=== PATIENT | female | born 1990 | race American Indian/Alaskan Native ===

== ENCOUNTER 2018-10-02 12:33 | Outpatient (CLI) | payer BC ==
[2018-10-02 12:59] VITALS: BP 132/85
== END 2018-10-02 16:31 | disposition home or self-care (01) ==
LOC: TRG 12:33
PROVIDERS: ATTEND Obstetrics & Gynecology
DX: O47.02 False labor before 37 completed weeks of gestation, second trimester (principal); Z3A.24 24 weeks gestation of pregnancy
CPT/HCPCS: 59025

== ENCOUNTER 2019-01-12 10:03 | Inpatient (IN) | payer BC ==
[2019-01-12 10:48] LABS: Hematocrit 46.3 % (30.3-42.9); Mean Corpuscular HGB Conc 35 % (30-34); Mean Corpuscular Volume 87 fl (79-97); Platelet Count 230 K/mm3 (140-440); Red Blood Count 5.34 M/mm3 (3.65-5.03); Red Cell Distribution Width 14.3 % (13.2-15.2)
[2019-01-12 10:50] LABS: Bacteria,Urine 2+ /HPF (Negative); Bilirubin,Urine NEG (Negative); Blood,Urine NEG (Negative); Color,Urine Yellow (Yellow); Mucus,Urine 1+ /HPF; Urobilinogen,Urine < 2.0 mg/dL (<2.0)
[2019-01-12 10:51] LABS: Protein,Urine >500 mg/dL (Negative)
[2019-01-12 11:13] LABS: Alanine Aminotransferase 46 units/L (7-56); Uric Acid 6.6 mg/dL (3.5-7.6)
--- NOTE | 2019-01-12 11:54 | Ultrasound Report ---
ULTRASOUND OB FOLLOW-UP ULTRASOUND OB BIOPHYSICAL PROFILE HISTORY: well-being, gestational hypertension COMPARISON: None at this facility TECHNIQUE: Routine complete OB ultrasound performed with biophysical profile. Transabdominal ultrasou nd with color Doppler imaging. FINDINGS: Gestation: Gal[place] Presentation: Cephalic Amniotic Fluid Index: 15.7 cm BIOMETRY: Biparietal diameter: 8.6 cm corresponding to34 weeks 4 days Head circumference: 29.7 cmcorresponding to32 weeks 6 days Abdominal circumference: 25.7 cmcorresponding to29 weeks 6 days Femur length: 5.9 cmcorresponding to30 weeks 4 days Estimated weight: 1630 +/- 241 grams. Estimated gestational age based on clinical history/previous ultrasound: 35 weeks 6 days with BENY 02/10 Estimated gestational age based on today's measurements: 32 weeks 0 days BIOPHYSICAL PROFILE: Movement: 2 Tone: 2 Breathin Amniotic Fluid: 2 Total: 8 out of 8 IMPRESSION 1. Single living intrauterine at approximately 32 weeks 0 days with appropriate growth and no sonographically evident anomalies. 2. Biophysical Profile 8 out of 8. Signer Name: Rafael Anguiano Jr, MD Signed: 01/12/2019 11:50 AM Workstation Name: [id number]
[2019-01-12] MEDS ORDERED: BENADRYL PO PRN (12:21)
[2019-01-12] MEDS ORDERED: AMBIEN PO PRN (12:21)
[2019-01-12] MEDS ORDERED: ZOFRAN IV PRN (12:21)
[2019-01-12] MEDS ORDERED: DEEP SEA NS PRN (12:21)
--- NOTE | 2019-01-12 12:46 | History and Physical Report ---
History of Present Illness Date of examination: 01/12/19 (Sent from office for [facility] eval) Chief complaint: Pt reprts no LEON today. Uses Tylenol if needed. History of present illness: EDC Confirmation: 02/11/2019 Gestational Age: 10 3/7 weeks Past History : 1 Past Medical History: Negative Past Medical History Past Surgical History: wisdom teeth removal 2009 Past Medical History Surgery (Non-seat cover cutter): wisdom teeth removal 2009 Abnormal PAP: negative NATALIE Exposure: negative Infertility: negative Uterine Anomaly: negative Uterine Surgery (not C/S): negative Other Gynecologic Problems: negative Family Hx: MGM-DM PGM-DM Social Hx: previous smoker quit 2010 Infection History Hx of STD: none HIV Risk Eval: low risk Hepatitis B Risk Eval: low risk Personal hx. of genital herpes: no Partner hx. of genital herpes: no Rash, Viral, or Febrile illness since last LMP? no Varicella/Chicken Pox Status: Previous Disease TB Risk: no Genetic History Congenital Heart Defect: Mom: no Dad: no Osiris Disease: Mom: no Dad: no Thalassemia Mom: no Dad: no Neural Tube Defect Mom: no Dad: no Down's Syndrome Mom: no Dad: no Popeye-Sachs Mom: no Dad: no Sickle Cell Disease/Trait Mom: no Dad: no Hemophilia Mom: no Dad: no Muscular Dystrophy Mom: no Dad: no Cystic Fibrosis Mom: no Dad: no Jamie Chorea Mom: no Dad: no Mental Retardation Mom: no Dad: no Fragile X Mom: no Dad: no Other Genetic/Chromosomal Disorder Mom: no Dad: no Child w/other defect Mom: no Dad: no Enviromental Exposures Enviromental Exposures Reviewed Xray Exposure: no Medication, drug, or alcohol use since LMP: no Chemical/Other Exposure: no Exposure to Cat Liter: no Hx of Parvovirus (Fifth Disease): no Occupational Exposure to Children: none Active Medications (reviewed today): None Current Allergies (reviewed today): No known allergies Past History - Obstetrical History Expected Date of Delivery: 02/11/19 Actual Gestation: 35 Week(s) 5 Day(s) : 1 Para: 0 Hx # Term Pregnancies: 0 Number of Pregnancies: 0 Spontaneous Abortions: 0 Induced : 0 Number of Living Children: 0 Medications and Allergies Allergies Allergy/AdvReac Type Severity Reaction Status Date / Time No Known Allergies Allergy Unverified 10/02/18 13:17 Active Meds: Active Medications Acetaminophen (Tylenol) 650 mg PO Q4H PRN PRN Reason: Pain MILD(1-3)/Fever >100.5/LEON Betamethasone Acet/Betameth SodPhos (Celestone Soluspan) 12 mg IM Q24HR LORI Stop: 01/13/19 10:01 Diphenhydramine HCl (Benadryl) 25 mg PO Q6H PRN PRN Reason: Itching Docusate Sodium (Colace) 100 mg PO Q12H PRN PRN Reason: Constipation Guaifenesin (Guaifenesin Dm Syrup) 10 ml PO Q6H PRN PRN Reason: Cough Lactated Ringer's (Lactated Ringers) 1,000 mls @ 125 mls/hr IV DIRECT LORI Multivitamins/Iron/Calcium ( Vitamin) 1 each PO QDAY LORI Ondansetron HCl (Zofran) 4 mg IV Q6H PRN PRN Reason: Nausea And Vomiting Sodium Chloride (Deep Sea) 2 spray NS Q4H PRN PRN Reason: Congestion Zolpidem Tartrate (Ambien) 10 mg PO ONCE PRN PRN Reason: Sleep - Vital Signs Vital signs: Vital Signs Pulse BP 77 155/103 01/12/19 10:45 01/12/19 10:45 Temp Pulse Resp BP Pulse Ox 76 142/84 01/12/19 12:19 01/12/19 12:19 - Physical Exam Breasts: Positive: deferred Cardiovascular: Regular rate, Normal S1, Normal S2 Lungs: Positive: Normal air movement Abdomen: Positive: normal appearance, soft, normal bowel sounds. Negative: distention, tenderness Genitourinary (Female): Positive: normal external genitalia Vulva: both: normal Vagina: Positive: normal moisture. Negative: discharge Cervix: Negative: lesion, discharge Uterus: Positive: normal size, normal contour Adnexa: both: normal Anus/Rectum: Positive: normal perianal skin, heme negative. Negative: rectal mass, hemorrhoids Extremities: Positive: edema (+1 non-pitting) Deep Tendon Reflex Grade: Normal +2 - Obstetrical FHR: category 1 Uterine Contraction Pattern: Absent Uterine Tone Measurement Phase: Resting Results Result Diagrams: 01/12/19 10:23 01/12/19 10:23 Abnormal lab results 07/10/19 07/10/19 07/10/19 Range/Units 10:23 10:23 10:37 RBC 5.34 H (3.65-5.03) M/mm3 Hgb 16.0 H (10.1-14.3) gm/dl Hct 46.3 H (30.3-42.9) % MCHC 35 H (30-34) % Lactate Dehydrogenase 267 H (91-180) units/L Urine WBC (Auto) 7.0 H (0.0-6.0) /HPF All other labs normal. GBS done in office today 01/12/19. HBsAg Screen Negative Negative *1 RPR Non Reactive Non Reactive *2 Rubella Antibodies, IgG 3.80 index Immune >0.99 *3 Non-immune <0.90 Equivocal 0.90 - 0.99 Immune >0.99 ABO Grouping O *4 Rh Factor Positive *5 Please note: Prior records for this patient's ABO / Rh type are not available for additional verification. Antibody Screen Negative Negative *6 WBC 8.1 x10E3/uL 3.4-10.8 *7 RBC 4.75 x10E6/uL 3.77-5.28 *8 Hemoglobin 14.5 g/dL 11.1-15.9 *9 Hematocrit 42.3 % 34.0-46.6 *10 MCV 89 fL 79-97 *11 MCH 30.5 pg 26.6-33.0 *12 MCHC 34.3 g/dL 31.5-35.7 *13 RDW 13.9 % 12.3-15.4 *14 Platelets 272 x10E3/uL 150-379 *15 Neutrophils 63 % Not Estab. *16 Lymphs 27 % Not Estab. *17 Monocytes 9 % Not Estab. *18 Eos 1 % Not Estab. *19 Basos 0 % Not Estab. *20 ! Immature Cells <No Reported Value> *21 Neutrophils (Absolute) 5.1 x10E3/uL 1.4-7.0 *22 Lymphs (Absolute) 2.2 x10E3/uL 0.7-3.1 *23 Monocytes(Absolute) 0.8 x10E3/uL 0.1-0.9 *24 Eos (Absolute) 0.1 x10E3/uL 0.0-0.4 *25 Baso (Absolute) 0.0 x10E3/uL 0.0-0.2 *26 ! Immature Granulocytes 0 % Not Estab. *27 ! Immature Grans (Abs) 0.0 x10E3/uL 0.0-0.1 *28 ! NRBC <No Reported Value> *29 Hematology Comments: <No Reported Value> *30 Tests: (2) Panel 262216 (080480) HIV Screen 4th Generation wRfx Non Reactive Non Reactive *31 Tests: (3) HCV Ab w/Rflx to Verification (993044) ! HCV Ab 0.1 s/co ratio 0.0-0.9 *32 Tests: (4) Comment: (260617) ! Comment: SPRCS *33 Non reactive HCV antibody screen is consistent with no HCV infection, unless recent infection is suspected or other evidence exists to indicate HCV infection. Tests: (5) Urine Culture, Routine (744141) Urine Culture, Routine Final report *34 Tests: (6) Result ([id number]) ! Result 1 No growth *35 Assessment and Plan 29 y.o AA female. @ 35.5wk. Sent from office d/t BP 160/100. Serial BPs, PIH labs, and U/S completed in triage. BPs remain 140/90, UA protein >500, and BPP 8/8. Consulted with Dr. Garcia. POC to admit to [facility] for 24-hr urine, serial BPs, and BMZ. Pt made aware of POC and agrees. All questions addressed. - Patient Problems (1) Pre-eclampsia in third trimester Onset Date: ~01/12/19 Current Visit: Yes Status: Acute Plan to address problem: Sent from office. UA protein >500. BPs in 140/90s. Will collect 24-hr urine and continue serial BPs. (2) IUGR (intrauterine growth restriction) Onset Date: ~01/12/19 Current Visit: Yes Status: Acute Plan to address problem: U/S done today. Today's U/S S<D by 4wks. Will get % growth. Continuous monitoring. (3) 35 to 36 weeks gestation of Onset Date: ~01/12/19 Current Visit: Yes Status: Acute Plan to address problem: BMZ ordered x 2 doses.
[2019-01-12] MEDS ORDERED: CELESTONE SOLUSPAN IM SCH (14:00)
--- NOTE | 2019-01-12 14:46 | Event Note ---
Date: 01/12/19 Patient w/o complaints Denies LEON,visual disturbances or abd pain BP is elevated Abd soft NT cx 0/50-3 PIH labs normal s/p 1 dose of BMZ 24hr urine collection ongoing Plan will give hydralazine/watch BP closely/Discuused with patient indications for induction for Pre-E/questions answered
[2019-01-12] MEDS ORDERED: APRESOLINE ONE (14:48)
[2019-01-12] MEDS ORDERED: APRESOLINE IV ONE (15:00)
--- NOTE | 2019-01-12 19:17 | Event Note ---
Date: 01/12/19 Patient with some labile blood pressures this afternoon. Blood pressures improved in the last hour. Again discussed with the patient and her that an indication to induce labor would be return of increased blood pressures. Discussed with them and described the use of Cervidil and Pitocin. All questions answered. Also discussed and maternal indications for section.
[2019-01-12] MEDS: TYLENOL PO PRN (19:49)
[2019-01-12] MEDS: LACTATED RINGERS 1,000 ML IV SCH (20:58)
[2019-01-13] MEDS ORDERED: APRESOLINE ONE (00:49)
[2019-01-13] MEDS ORDERED: APRESOLINE IV ONE ×2 (00:50→07:30)
[2019-01-13] MEDS ORDERED: PITOCin/NS 30 UNIT/500ML 30,000 MILLIUNITS/500 ML BAG IV ONE (00:50)
[2019-01-13] MEDS ORDERED: MAGNESIUM SULFATE 4GM/100ML 4 GM/100 ML BAG IV ONE (00:50)
[2019-01-13] MEDS ORDERED: STADOL IV PRN (00:50)
--- NOTE | 2019-01-13 00:56 | Event Note ---
Date: 01/13/19 Called by RN patient with elevated BP/SROM Will start induction/MgSO4
[2019-01-13] MEDS: MAGNESIUM SULFATE 40GM/1000ML 40 GM/1,000 ML BAG IV SCH (03:33)
[2019-01-13] MEDS: TYLENOL PO PRN (04:11)
[2019-01-13] MEDS: LACTATED RINGERS 1,000 ML IV SCH (05:24)
--- NOTE | 2019-01-13 06:03 | Progress Note ---
Assessment and Plan pt with c/o mild LEON O2 on face mask BP 150-160/80-90 MGSO4@ 2gm/hr Pitocin @ 6mu SVE 0.5,70,-2 ISE on. Explained to pt that distress remote from delivery section may be necessary. All questions addressed. Will continue to closely monitor . - Patient Problems (1) Pre-eclampsia in third trimester Onset Date: ~01/12/19 Current Visit: Yes Status: Acute (2) IUGR (intrauterine growth restriction) Onset Date: ~01/12/19 Current Visit: Yes Status: Acute (3) 35 to 36 weeks gestation of Onset Date: ~01/12/19 Current Visit: Yes Status: Acute Subjective - Subjective Date of service: 01/13/19 (variables noted ISE applied) Interval history: EDC Confirmation: 02/11/2019 Gestational Age: 10 3/7 weeks Past History : 1 Past Medical History: Negative Past Medical History Past Surgical History: wisdom teeth removal 2009 Past Medical History Surgery (Non-foil spinner): wisdom teeth removal 2009 Abnormal PAP: negative NATALIE Exposure: negative Infertility: negative Uterine Anomaly: negative Uterine Surgery (not C/S): negative Other Gynecologic Problems: negative Family Hx: MGM-DM PGM-DM Social Hx: previous smoker quit 2010 Infection History Hx of STD: none HIV Risk Eval: low risk Hepatitis B Risk Eval: low risk Personal hx. of genital herpes: no Partner hx. of genital herpes: no Rash, Viral, or Febrile illness since last LMP? no Varicella/Chicken Pox Status: Previous Disease TB Risk: no Genetic History Congenital Heart Defect: Mom: no Dad: no Osiris Disease: Mom: no Dad: no Thalassemia Mom: no Dad: no Neural Tube Defect Mom: no Dad: no Down's Syndrome Mom: no Dad: no Popeye-Sachs Mom: no Dad: no Sickle Cell Disease/Trait Mom: no Dad: no Hemophilia Mom: no Dad: no Muscular Dystrophy Mom: no Dad: no Cystic Fibrosis Mom: no Dad: no Jamie Chorea Mom: no Dad: no Mental Retardation Mom: no Dad: no Fragile X Mom: no Dad: no Other Genetic/Chromosomal Disorder Mom: no Dad: no Child w/other defect Mom: no Dad: no Enviromental Exposures Enviromental Exposures Reviewed Xray Exposure: no Medication, drug, or alcohol use since LMP: no Chemical/Other Exposure: no Exposure to Cat Liter: no Hx of Parvovirus (Fifth Disease): no Occupational Exposure to Children: none Active Medications (reviewed today): None Current Allergies (reviewed today): No known allergies Patient reports: movement normal Objective - Vital Signs Vital Signs: Vital Signs - 12hr 01/12/19 01/12/19 01/12/19 18:00 18:24 19:25 Temperature Pulse Rate 92 H 93 H 93 H Respiratory Rate Blood Pressure 137/97 133/85 136/88 Blood Pressure [Left] O2 Sat by Pulse Oximetry 01/12/19 01/12/19 01/12/19 19:28 19:29 20:25 Temperature 97.3 F L Pulse Rate 93 H 93 H 83 Respiratory 16 Rate Blood Pressure 136/89 136/86 Blood Pressure 136/89 [Left] O2 Sat by Pulse Oximetry 01/12/19 01/12/19 01/12/19 21:25 21:42 21:47 Temperature Pulse Rate 86 81 76 Respiratory Rate Blood Pressure 150/96 Blood Pressure [Left] O2 Sat by Pulse 99 100 Oximetry 01/12/19 01/12/19 01/12/19 21:52 21:57 22:02 Temperature Pulse Rate 77 78 78 Respiratory Rate Blood Pressure Blood Pressure [Left] O2 Sat by Pulse 100 100 100 Oximetry 01/12/19 01/12/19 01/12/19 22:07 22:12 22:17 Temperature Pulse Rate 80 78 75 Respiratory Rate Blood Pressure Blood Pressure [Left] O2 Sat by Pulse 100 100 100 Oximetry 01/12/19 01/12/19 01/12/19 22:22 22:25 22:27 Temperature Pulse Rate 76 80 79 Respiratory Rate Blood Pressure 136/89 Blood Pressure [Left] O2 Sat by Pulse 99 100 Oximetry 01/12/19 01/12/19 01/12/19 22:32 22:37 22:42 Temperature Pulse Rate 85 87 75 Respiratory Rate Blood Pressure Blood Pressure [Left] O2 Sat by Pulse 100 100 100 Oximetry 01/12/19 01/12/19 01/12/19 22:47 22:52 22:57 Temperature Pulse Rate 81 77 76 Respiratory Rate Blood Pressure Blood Pressure [Left] O2 Sat by Pulse 100 100 100 Oximetry 01/12/19 01/12/19 01/12/19 23:02 23:07 23:12 Temperature Pulse Rate 81 76 73 Respiratory Rate Blood Pressure Blood Pressure [Left] O2 Sat by Pulse 100 100 100 Oximetry 01/12/19 01/12/19 01/12/19 23:17 23:22 23:25 Temperature Pulse Rate 75 88 78 Respiratory Rate Blood Pressure 150/96 Blood Pressure [Left] O2 Sat by Pulse 100 100 Oximetry 01/12/19 01/12/19 01/12/19 23:27 23:32 23:37 Temperature Pulse Rate 81 69 97 H Respiratory Rate Blood Pressure Blood Pressure [Left] O2 Sat by Pulse 100 100 100 Oximetry 01/12/19 01/12/19 01/12/19 23:42 23:45 23:46 Temperature Pulse Rate 79 78 72 Respiratory Rate Blood Pressure 178/113 163/105 Blood Pressure [Left] O2 Sat by Pulse 100 Oximetry 01/12/19 01/12/19 01/12/19 23:47 23:52 23:57 Temperature Pulse Rate 76 76 76 Respiratory Rate Blood Pressure Blood Pressure [Left] O2 Sat by Pulse 100 100 100 Oximetry 01/13/19 01/13/19 01/13/19 00:02 00:07 00:12 Temperature Pulse Rate 83 78 72 Respiratory Rate Blood Pressure Blood Pressure [Left] O2 Sat by Pulse 100 100 100 Oximetry 01/13/19 01/13/19 01/13/19 00:17 00:22 00:23 Temperature Pulse Rate 72 76 81 Respiratory Rate Blood Pressure 167/109 Blood Pressure [Left] O2 Sat by Pulse 100 100 Oximetry 01/13/19 01/13/19 01/13/19 00:27 00:32 00:44 Temperature Pulse Rate 77 76 81 Respiratory Rate Blood Pressure Blood Pressure [Left] O2 Sat by Pulse 100 100 100 Oximetry 01/13/19 01/13/19 01/13/19 00:49 00:54 00:55 Temperature Pulse Rate 84 81 81 Respiratory Rate Blood Pressure 176/119 Blood Pressure [Left] O2 Sat by Pulse 100 100 Oximetry 01/13/19 01/13/19 01/13/19 01:00 01:05 01:10 Temperature Pulse Rate 88 80 93 H Respiratory Rate Blood Pressure Blood Pressure [Left] O2 Sat by Pulse 100 100 100 Oximetry 01/13/19 01/13/19 01/13/19 01:11 01:15 01:20 Temperature Pulse Rate 82 88 83 Respiratory Rate Blood Pressure 176/119 Blood Pressure [Left] O2 Sat by Pulse 100 100 Oximetry 01/13/19 01/13/19 01/13/19 01:23 01:25 01:30 Temperature Pulse Rate 89 92 H 103 H Respiratory Rate Blood Pressure 151/91 Blood Pressure [Left] O2 Sat by Pulse 100 100 Oximetry 01/13/19 01/13/19 01/13/19 01:35 01:40 01:44 Temperature Pulse Rate 95 H 94 H 94 H Respiratory Rate Blood Pressure Blood Pressure [Left] O2 Sat by Pulse 100 100 93 Oximetry 01/13/19 01/13/19 01/13/19 01:45 01:48 01:50 Temperature Pulse Rate 94 H 94 H 100 H Respiratory Rate Blood Pressure 143/96 Blood Pressure [Left] O2 Sat by Pulse 99 99 Oximetry 01/13/19 01/13/19 01/13/19 01:53 01:55 01:58 Temperature Pulse Rate 99 H 102 H 100 H Respiratory Rate Blood Pressure 144/94 150/95 Blood Pressure [Left] O2 Sat by Pulse 98 Oximetry 01/13/19 01/13/19 01/13/19 02:00 02:03 02:05 Temperature Pulse Rate 103 H 104 H 104 H Respiratory Rate Blood Pressure 148/108 Blood Pressure [Left] O2 Sat by Pulse 98 99 Oximetry 01/13/19 01/13/19 01/13/19 02:09 02:10 02:13 Temperature Pulse Rate 104 H 102 H 99 H Respiratory Rate Blood Pressure 140/88 144/93 Blood Pressure [Left] O2 Sat by Pulse 99 Oximetry 01/13/19 01/13/19 01/13/19 02:15 02:18 02:20 Temperature Pulse Rate 100 H 100 H 104 H Respiratory Rate Blood Pressure 153/96 Blood Pressure [Left] O2 Sat by Pulse 99 99 Oximetry 01/13/19 01/13/19 01/13/19 02:23 02:25 02:28 Temperature Pulse Rate 100 H 107 H 104 H Respiratory Rate Blood Pressure 147/96 152/100 Blood Pressure [Left] O2 Sat by Pulse 99 Oximetry 01/13/19 01/13/19 01/13/19 02:30 02:33 02:35 Temperature Pulse Rate 105 H 104 H 107 H Respiratory Rate Blood Pressure 157/97 Blood Pressure [Left] O2 Sat by Pulse 99 99 Oximetry 01/13/19 01/13/19 01/13/19 02:38 02:40 02:43 Temperature Pulse Rate 96 H 103 H 101 H Respiratory Rate Blood Pressure 155/95 157/101 Blood Pressure [Left] O2 Sat by Pulse 99 Oximetry 01/13/19 01/13/19 01/13/19 02:45 02:48 02:50 Temperature Pulse Rate 99 H 98 H 95 H Respiratory Rate Blood Pressure 150/92 Blood Pressure [Left] O2 Sat by Pulse 99 99 Oximetry 01/13/19 01/13/19 01/13/19 02:53 02:55 02:58 Temperature Pulse Rate 95 H 100 H 99 H Respiratory Rate Blood Pressure 157/95 155/91 Blood Pressure [Left] O2 Sat by Pulse 100 Oximetry 01/13/19 01/13/19 01/13/19 03:00 03:03 03:05 Temperature Pulse Rate 97 H 95 H 103 H Respiratory Rate Blood Pressure 156/93 Blood Pressure [Left] O2 Sat by Pulse 100 99 Oximetry 01/13/19 01/13/19 01/13/19 03:08 03:10 03:13 Temperature Pulse Rate 100 H 96 H 97 H Respiratory Rate Blood Pressure 151/91 150/91 Blood Pressure [Left] O2 Sat by Pulse 99 Oximetry 01/13/19 01/13/19 01/13/19 03:15 03:18 03:20 Temperature Pulse Rate 95 H 97 H 93 H Respiratory Rate Blood Pressure 148/87 Blood Pressure [Left] O2 Sat by Pulse 100 99 Oximetry 01/13/19 01/13/19 01/13/19 03:23 03:25 03:28 Temperature Pulse Rate 98 H 102 H 93 H Respiratory Rate Blood Pressure 148/90 153/91 Blood Pressure [Left] O2 Sat by Pulse 99 Oximetry 01/13/19 01/13/19 01/13/19 03:30 03:33 03:35 Temperature Pulse Rate 91 H 98 H 102 H Respiratory Rate Blood Pressure 150/89 Blood Pressure [Left] O2 Sat by Pulse 99 99 Oximetry 01/13/19 01/13/19 01/13/19 03:40 03:45 03:50 Temperature Pulse Rate 101 H 102 H 101 H Respiratory Rate Blood Pressure Blood Pressure [Left] O2 Sat by Pulse 99 100 100 Oximetry 01/13/19 01/13/19 01/13/19 03:55 04:00 04:05 Temperature Pulse Rate 97 H 97 H 98 H Respiratory Rate Blood Pressure Blood Pressure [Left] O2 Sat by Pulse 99 99 99 Oximetry 01/13/19 01/13/19 01/13/19 04:08 04:10 04:15 Temperature Pulse Rate 100 H 100 H 99 H Respiratory Rate Blood Pressure 156/95 Blood Pressure [Left] O2 Sat by Pulse 99 99 Oximetry 01/13/19 01/13/19 01/13/19 04:20 04:25 04:30 Temperature Pulse Rate 101 H 101 H 93 H Respiratory Rate Blood Pressure Blood Pressure [Left] O2 Sat by Pulse 99 100 99 Oximetry 01/13/19 01/13/19 01/13/19 04:35 04:38 04:40 Temperature Pulse Rate 98 H 104 H 98 H Respiratory Rate Blood Pressure 151/91 Blood Pressure [Left] O2 Sat by Pulse 99 99 Oximetry 01/13/19 01/13/19 01/13/19 04:45 04:50 04:55 Temperature Pulse Rate 104 H 98 H 97 H Respiratory Rate Blood Pressure Blood Pressure [Left] O2 Sat by Pulse 100 99 99 Oximetry 01/13/19 01/13/19 01/13/19 05:00 05:05 05:08 Temperature Pulse Rate 92 H 88 88 Respiratory Rate Blood Pressure 161/106 Blood Pressure [Left] O2 Sat by Pulse 99 98 Oximetry 01/13/19 01/13/19 01/13/19 05:10 05:15 05:18 Temperature Pulse Rate 90 92 H 93 H Respiratory Rate Blood Pressure 150/89 Blood Pressure [Left] O2 Sat by Pulse 100 99 Oximetry 01/13/19 01/13/19 01/13/19 05:20 05:25 05:30 Temperature Pulse Rate 89 99 H 88 Respiratory Rate Blood Pressure Blood Pressure [Left] O2 Sat by Pulse 100 99 100 Oximetry 01/13/19 01/13/19 01/13/19 05:35 05:38 05:39 Temperature Pulse Rate 93 H 97 H 102 H Respiratory Rate Blood Pressure 173/115 172/111 Blood Pressure [Left] O2 Sat by Pulse 99 Oximetry 01/13/19 01/13/19 01/13/19 05:40 05:41 05:46 Temperature Pulse Rate 104 H 101 H 104 H Respiratory Rate Blood Pressure 156/99 Blood Pressure [Left] O2 Sat by Pulse 100 99 Oximetry 01/13/19 01/13/19 05:51 05:56 Temperature Pulse Rate 116 H 106 H Respiratory Rate Blood Pressure Blood Pressure [Left] O2 Sat by Pulse 99 100 Oximetry - Exam Breasts: deferred Cardiovascular: Regular rate Lungs: Normal air movement Abdomen: Present: normal appearance, soft. Absent: distention, tenderness Uterus: Present: normal FHR: auscultation normal, category 2 Uterine Contraction Monitor Mode: Internal Cervical Dilatation: 0.5 (ISE applied) Cervical Effacement Percentage: 70 station: -2 Uterine Contraction Pattern: Irregular Uterine Tone Measurement Phase: Resting Uterine Contraction Intensity: Mild Extremities: edema Deep Tendon Reflex Grade: Normal +2 - Labs Labs: Abnormal Labs 01/12/19 01/12/19 01/12/19 10:23 10:23 10:37 RBC 5.34 H Hgb 16.0 H Hct 46.3 H MCHC 35 H Lactate Dehydrogenase 267 H Urine WBC (Auto) 7.0 H Laboratory Results - last 24 hr 01/12/19 01/12/19 01/12/19 10:23 10:23 10:23 WBC 9.1 RBC 5.34 H Hgb 16.0 H Hct 46.3 H MCV 87 MCH 30 MCHC 35 H RDW 14.3 Plt Count 230 Creatinine 0.8 Estimated GFR > 60 Uric Acid 6.6 AST 34 ALT 46 Lactate Dehydrogenase 267 H Urine Color Urine Turbidity Urine pH Ur Specific [place] Urine Protein Urine Glucose (UA) Urine Ketones Urine Blood Urine Nitrite Urine Bilirubin Urine Urobilinogen Ur Leukocyte Esterase Urine WBC (Auto) Urine RBC (Auto) U Epithel Cells (Auto) Urine Bacteria (Auto) Urine Mucus Blood Type Antibody Screen 01/12/19 01/12/19 10:37 12:59 WBC RBC Hgb Hct MCV MCH MCHC RDW Plt Count Creatinine Estimated GFR Uric Acid AST ALT Lactate Dehydrogenase Urine Color Yellow Urine Turbidity Slightly-cloudy Urine pH 6.0 Ur Specific Wal[place] 1.024 Urine Protein >500 Urine Glucose (UA) Neg Urine Ketones Neg Urine Blood Neg Urine Nitrite Neg Urine Bilirubin Neg Urine Urobilinogen < 2.0 Ur Leukocyte Esterase Neg Urine WBC (Auto) 7.0 H Urine RBC (Auto) 2.0 U Epithel Cells (Auto) 5.0 Urine Bacteria (Auto) 2+ Urine Mucus 1+ Blood Type O POSITIVE Antibody Screen Negative
--- NOTE | 2019-01-13 07:16 | Event Note ---
Date: 01/13/19 (BP 170/100 X 3 Apresoline given) Variables noted Unable to name them due to inability to see uterine activity Category [address] Garcia Pt aware of possible operative delivery and continued elevated blood pressure. Apresoline 10mg given. Will move forward with prep for c/s giving report to
[2019-01-13] MEDS ORDERED: CELESTONE SOLUSPAN IM SCH (07:40)
--- NOTE | 2019-01-13 07:57 | Anesthesia Day of Surgery ---
Anesthesia Day of Surgery - Day of Surgery Patient Examined: Yes Patient H&P Reviewed: Yes
--- NOTE | 2019-01-13 07:57 | Anesthesia Consultation ---
Anesthesia Consult and Med Hx Date of service: 01/13/19 - Airway Anesthetic Teeth Evaluation: Good ROM Head & Neck: Adequate Mental/Hyoid Distance: Adequate Mallampati Class: Class II Intubation Access Assessment: Good - Pulmonary Exam CTA: Yes - Cardiac Exam Cardiac Exam: RRR - Pre-Operative Health Status ASA Pre-Surgery Classification: ASA2, Emergency Proposed Anesthetic Plan: Spinal - Pulmonary Hx Asthma: No - Cardiovascular System Hx Hypertension: Yes - Central Nervous System Hx Seizures: No Hx Psychiatric Problems: No - Endocrine Hx Renal Disease: No Hx Hypothyroidism: No Hx Hyperthyroidism: No - Hematic Hx Anemia: No Hx Sickle Cell Disease: No - Other Systems Hx Alcohol Use: No
[2019-01-13] MEDS ORDERED: BICITRA PO NR (08:00)
[2019-01-13] MEDS ORDERED: ANCEF/STERILE WATER 2 GM/20 ML 2 GM/20 ML SYRINGE IV NR (08:00)
[2019-01-13] MEDS ORDERED: PITOCin/NS 20 UNIT/1000ML DRIP 20 UNITS/1,000 ML BAG IV SCH ×2 (08:00→11:00)
[2019-01-13] MEDS ORDERED: LACTATED RINGERS 1,000 ML IV SCH (08:00)
[2019-01-13] MEDS ORDERED: PEPCID IV NR (08:00)
[2019-01-13] MEDS ORDERED: REGLAN IV NR (08:00)
--- NOTE | 2019-01-13 08:29 | Progress Note ---
Assessment and Plan - Patient Problems (1) 35 to 36 weeks gestation of Onset Date: ~01/12/19 Current Visit: Yes Status: Acute (2) IUGR (intrauterine growth restriction) Onset Date: ~01/12/19 Current Visit: Yes Status: Acute (3) Pre-eclampsia in third trimester Onset Date: ~01/12/19 Current Visit: Yes Status: Acute Plan to address problem: Strip and chart reviewed, cat 2fht's, cervical change noted. Preeclampsia explained, need for delivery for resolution discussed. Options for delivery explained: C/S vs SALVADOR. Risks associated with c/s reviewed including but not limited to, bleeding, infection, injury to bowel, bladder and possible need for repeat c/s with all subsequent pregnancies. Also discussed p[possible deterioration of and maternal status with SALVADOR that may require emergency c/s. Patient and family voiced understanding and she desires a SALVADOR. Consent for C/S however reviewed and signed. Subjective - Subjective Date of service: 01/13/19 Principal diagnosis: IUP@35wga, PreE with sever features Interval history: Complains of n/v and LEON Patient reports: new complaints, movement normal Objective - Vital Signs Vital Signs: Vital Signs - 12hr 01/12/19 01/12/19 01/12/19 20:25 21:25 21:42 Pulse Rate 83 86 81 Blood Pressure 136/86 150/96 O2 Sat by Pulse 99 Oximetry 01/12/19 01/12/19 01/12/19 21:47 21:52 21:57 Pulse Rate 76 77 78 Blood Pressure O2 Sat by Pulse 100 100 100 Oximetry 01/12/19 01/12/19 01/12/19 22:02 22:07 22:12 Pulse Rate 78 80 78 Blood Pressure O2 Sat by Pulse 100 100 100 Oximetry 01/12/19 01/12/19 01/12/19 22:17 22:22 22:25 Pulse Rate 75 76 80 Blood Pressure 136/89 O2 Sat by Pulse 100 99 Oximetry 01/12/19 01/12/19 01/12/19 22:27 22:32 22:37 Pulse Rate 79 85 87 Blood Pressure O2 Sat by Pulse 100 100 100 Oximetry 01/12/19 01/12/19 01/12/19 22:42 22:47 22:52 Pulse Rate 75 81 77 Blood Pressure O2 Sat by Pulse 100 100 100 Oximetry 01/12/19 01/12/19 01/12/19 22:57 23:02 23:07 Pulse Rate 76 81 76 Blood Pressure O2 Sat by Pulse 100 100 100 Oximetry 01/12/19 01/12/19 01/12/19 23:12 23:17 23:22 Pulse Rate 73 75 88 Blood Pressure O2 Sat by Pulse 100 100 100 Oximetry 01/12/19 01/12/19 01/12/19 23:25 23:27 23:32 Pulse Rate 78 81 69 Blood Pressure 150/96 O2 Sat by Pulse 100 100 Oximetry 01/12/19 01/12/19 01/12/19 23:37 23:42 23:45 Pulse Rate 97 H 79 78 Blood Pressure 178/113 O2 Sat by Pulse 100 100 Oximetry 01/12/19 01/12/19 01/12/19 23:46 23:47 23:52 Pulse Rate 72 76 76 Blood Pressure 163/105 O2 Sat by Pulse 100 100 Oximetry 01/12/19 01/13/19 01/13/19 23:57 00:02 00:07 Pulse Rate 76 83 78 Blood Pressure O2 Sat by Pulse 100 100 100 Oximetry 01/13/19 01/13/19 01/13/19 00:12 00:17 00:22 Pulse Rate 72 72 76 Blood Pressure O2 Sat by Pulse 100 100 100 Oximetry 01/13/19 01/13/19 01/13/19 00:23 00:27 00:32 Pulse Rate 81 77 76 Blood Pressure 167/109 O2 Sat by Pulse 100 100 Oximetry 01/13/19 01/13/19 01/13/19 00:44 00:49 00:54 Pulse Rate 81 84 81 Blood Pressure 176/119 O2 Sat by Pulse 100 100 Oximetry 01/13/19 01/13/19 01/13/19 00:55 01:00 01:05 Pulse Rate 81 88 80 Blood Pressure O2 Sat by Pulse 100 100 100 Oximetry 01/13/19 01/13/19 01/13/19 01:10 01:11 01:15 Pulse Rate 93 H 82 88 Blood Pressure 176/119 O2 Sat by Pulse 100 100 Oximetry 01/13/19 01/13/19 01/13/19 01:20 01:23 01:25 Pulse Rate 83 89 92 H Blood Pressure 151/91 O2 Sat by Pulse 100 100 Oximetry 01/13/19 01/13/19 01/13/19 01:30 01:35 01:40 Pulse Rate 103 H 95 H 94 H Blood Pressure O2 Sat by Pulse 100 100 100 Oximetry 01/13/19 01/13/19 01/13/19 01:44 01:45 01:48 Pulse Rate 94 H 94 H 94 H Blood Pressure 143/96 O2 Sat by Pulse 93 99 Oximetry 01/13/19 01/13/19 01/13/19 01:50 01:53 01:55 Pulse Rate 100 H 99 H 102 H Blood Pressure 144/94 O2 Sat by Pulse 99 98 Oximetry 01/13/19 01/13/19 01/13/19 01:58 02:00 02:03 Pulse Rate 100 H 103 H 104 H Blood Pressure 150/95 148/108 O2 Sat by Pulse 98 Oximetry 01/13/19 01/13/19 01/13/19 02:05 02:09 02:10 Pulse Rate 104 H 104 H 102 H Blood Pressure 140/88 O2 Sat by Pulse 99 99 Oximetry 01/13/19 01/13/19 01/13/19 02:13 02:15 02:18 Pulse Rate 99 H 100 H 100 H Blood Pressure 144/93 153/96 O2 Sat by Pulse 99 Oximetry 01/13/19 01/13/19 01/13/19 02:20 02:23 02:25 Pulse Rate 104 H 100 H 107 H Blood Pressure 147/96 O2 Sat by Pulse 99 99 Oximetry 01/13/19 01/13/19 01/13/19 02:28 02:30 02:33 Pulse Rate 104 H 105 H 104 H Blood Pressure 152/100 157/97 O2 Sat by Pulse 99 Oximetry 01/13/19 01/13/19 01/13/19 02:35 02:38 02:40 Pulse Rate 107 H 96 H 103 H Blood Pressure 155/95 O2 Sat by Pulse 99 99 Oximetry 01/13/19 01/13/19 01/13/19 02:43 02:45 02:48 Pulse Rate 101 H 99 H 98 H Blood Pressure 157/101 150/92 O2 Sat by Pulse 99 Oximetry 01/13/19 01/13/19 01/13/19 02:50 02:53 02:55 Pulse Rate 95 H 95 H 100 H Blood Pressure 157/95 O2 Sat by Pulse 99 100 Oximetry 01/13/19 01/13/19 01/13/19 02:58 03:00 03:03 Pulse Rate 99 H 97 H 95 H Blood Pressure 155/91 156/93 O2 Sat by Pulse 100 Oximetry 01/13/19 01/13/19 01/13/19 03:05 03:08 03:10 Pulse Rate 103 H 100 H 96 H Blood Pressure 151/91 O2 Sat by Pulse 99 99 Oximetry 01/13/19 01/13/19 01/13/19 03:13 03:15 03:18 Pulse Rate 97 H 95 H 97 H Blood Pressure 150/91 148/87 O2 Sat by Pulse 100 Oximetry 01/13/19 01/13/19 01/13/19 03:20 03:23 03:25 Pulse Rate 93 H 98 H 102 H Blood Pressure 148/90 O2 Sat by Pulse 99 99 Oximetry 01/13/19 01/13/19 01/13/19 03:28 03:30 03:33 Pulse Rate 93 H 91 H 98 H Blood Pressure 153/91 150/89 O2 Sat by Pulse 99 Oximetry 01/13/19 01/13/19 01/13/19 03:35 03:40 03:45 Pulse Rate 102 H 101 H 102 H Blood Pressure O2 Sat by Pulse 99 99 100 Oximetry 01/13/19 01/13/19 01/13/19 03:50 03:55 04:00 Pulse Rate 101 H 97 H 97 H Blood Pressure O2 Sat by Pulse 100 99 99 Oximetry 01/13/19 01/13/19 01/13/19 04:05 04:08 04:10 Pulse Rate 98 H 100 H 100 H Blood Pressure 156/95 O2 Sat by Pulse 99 99 Oximetry 01/13/19 01/13/19 01/13/19 04:15 04:20 04:25 Pulse Rate 99 H 101 H 101 H Blood Pressure O2 Sat by Pulse 99 99 100 Oximetry 01/13/19 01/13/19 01/13/19 04:30 04:35 04:38 Pulse Rate 93 H 98 H 104 H Blood Pressure 151/91 O2 Sat by Pulse 99 99 Oximetry 01/13/19 01/13/19 01/13/19 04:40 04:45 04:50 Pulse Rate 98 H 104 H 98 H Blood Pressure O2 Sat by Pulse 99 100 99 Oximetry 07/05/2401/13/19 01/13/19 04:55 05:00 05:05 Pulse Rate 97 H 92 H 88 Blood Pressure O2 Sat by Pulse 99 99 98 Oximetry 01/13/19 01/13/19 01/13/19 05:08 05:10 05:15 Pulse Rate 88 90 92 H Blood Pressure 161/106 O2 Sat by Pulse 100 99 Oximetry 01/13/19 01/13/19 01/13/19 05:18 05:20 05:25 Pulse Rate 93 H 89 99 H Blood Pressure 150/89 O2 Sat by Pulse 100 99 Oximetry 01/13/19 01/13/19 01/13/19 05:30 05:35 05:38 Pulse Rate 88 93 H 97 H Blood Pressure 173/115 O2 Sat by Pulse 100 99 Oximetry 01/13/19 01/13/19 01/13/19 05:39 05:40 05:41 Pulse Rate 102 H 104 H 101 H Blood Pressure 172/111 156/99 O2 Sat by Pulse 100 Oximetry 01/13/19 01/13/19 01/13/19 05:46 05:51 05:56 Pulse Rate 104 H 116 H 106 H Blood Pressure O2 Sat by Pulse 99 99 100 Oximetry 01/13/19 01/13/19 01/13/19 06:01 06:06 06:08 Pulse Rate 101 H 100 H 100 H Blood Pressure 171/103 O2 Sat by Pulse 100 100 Oximetry 01/13/19 01/13/19 01/13/19 06:11 06:16 06:21 Pulse Rate 99 H 103 H 101 H Blood Pressure O2 Sat by Pulse 100 99 100 Oximetry 01/13/19 01/13/19 01/13/19 06:26 06:31 06:36 Pulse Rate 104 H 100 H 97 H Blood Pressure O2 Sat by Pulse 100 99 99 Oximetry 01/13/19 01/13/19 01/13/19 06:38 06:41 06:44 Pulse Rate 100 H 100 H 100 H Blood Pressure 172/113 170/107 O2 Sat by Pulse 99 Oximetry 01/13/19 01/13/19 01/13/19 06:46 06:51 06:56 Pulse Rate 98 H 96 H 103 H Blood Pressure O2 Sat by Pulse 99 100 99 Oximetry 01/13/19 01/13/19 01/13/19 07:01 07:06 07:09 Pulse Rate 107 H 115 H 117 H Blood Pressure 181/100 O2 Sat by Pulse 100 100 Oximetry 01/13/19 01/13/19 01/13/19 07:11 07:13 07:16 Pulse Rate 117 H 121 H 110 H Blood Pressure 181/100 O2 Sat by Pulse 100 100 Oximetry 01/13/19 01/13/19 01/13/19 07:20 07:21 07:25 Pulse Rate 125 H 141 H 131 H Blood Pressure 179/91 151/86 O2 Sat by Pulse 100 Oximetry 01/13/19 01/13/19 01/13/19 07:26 07:31 07:36 Pulse Rate 133 H 132 H 131 H Blood Pressure 149/89 151/90 O2 Sat by Pulse 100 100 100 Oximetry 01/13/19 01/13/19 01/13/19 07:37 07:38 07:41 Pulse Rate 126 H 131 H 112 H Blood Pressure 124/88 141/92 159/98 O2 Sat by Pulse 96 Oximetry 01/13/19 01/13/19 01/13/19 07:46 07:47 07:50 Pulse Rate 93 H 93 H 96 H Blood Pressure 108/59 132/79 O2 Sat by Pulse 99 Oximetry 01/13/19 01/13/19 01/13/19 07:51 07:56 08:01 Pulse Rate 101 H 102 H 112 H Blood Pressure 136/88 185/107 O2 Sat by Pulse 99 100 98 Oximetry 01/13/19 01/13/19 01/13/19 08:03 08:06 08:11 Pulse Rate 105 H 109 H 109 H Blood Pressure 154/102 150/91 143/85 O2 Sat by Pulse 98 98 Oximetry 01/13/19 08:16 Pulse Rate 103 H Blood Pressure O2 Sat by Pulse 97 Oximetry - Exam Breasts: deferred Lungs: Clear to auscultation, Normal air movement Abdomen: Present: soft. Absent: distention, tenderness Vulva: both: normal Uterus: Present: fundal height above umbilicus. Absent: tenderness FHR: category 2 Uterine Contraction Monitor Mode: External Cervical Dilatation: 2 Cervical Effacement Percentage: 50 station: -2 Uterine Contraction Pattern: Irregular - Labs Labs: Abnormal Labs 01/12/19 01/12/19 01/12/19 10:23 10:23 10:37 RBC 5.34 H Hgb 16.0 H Hct 46.3 H MCHC 35 H Magnesium Lactate Dehydrogenase 267 H Urine WBC (Auto) 7.0 H 01/13/19 05:59 RBC Hgb Hct MCHC Magnesium 4.30 H Lactate Dehydrogenase Urine WBC (Auto) Laboratory Results - last 24 hr 01/12/19 01/12/19 01/12/19 10:23 10:23 10:23 WBC 9.1 RBC 5.34 H Hgb 16.0 H Hct 46.3 H MCV 87 MCH 30 MCHC 35 H RDW 14.3 Plt Count 230 Creatinine 0.8 Estimated GFR > 60 Uric Acid 6.6 Magnesium AST 34 ALT 46 Lactate Dehydrogenase 267 H Urine Color Urine Turbidity Urine pH Ur Specific [place] Urine Protein Urine Glucose (UA) Urine Ketones Urine Blood Urine Nitrite Urine Bilirubin Urine Urobilinogen Ur Leukocyte Esterase Urine WBC (Auto) Urine RBC (Auto) U Epithel Cells (Auto) Urine Bacteria (Auto) Urine Mucus Blood Type Antibody Screen 01/12/19 01/12/19 01/13/19 10:37 12:59 05:59 WBC RBC Hgb Hct MCV MCH MCHC RDW Plt Count Creatinine Estimated GFR Uric Acid Magnesium 4.30 H AST ALT Lactate Dehydrogenase Urine Color Yellow Urine Turbidity Slightly-cloudy Urine pH 6.0 Ur Specific [place] 1.024 Urine Protein >500 Urine Glucose (UA) Neg Urine Ketones Neg Urine Blood Neg Urine Nitrite Neg Urine Bilirubin Neg Urine Urobilinogen < 2.0 Ur Leukocyte Esterase Neg Urine WBC (Auto) 7.0 H Urine RBC (Auto) 2.0 U Epithel Cells (Auto) 5.0 Urine Bacteria (Auto) 2+ Urine Mucus 1+ Blood Type O POSITIVE Antibody Screen Negative
--- NOTE | 2019-01-13 08:48 | Progress Note ---
Assessment and Plan - Patient Problems (1) 35 to 36 weeks gestation of Onset Date: ~01/12/19 Current Visit: Yes Status: Acute (2) IUGR (intrauterine growth restriction) Onset Date: ~01/12/19 Current Visit: Yes Status: Acute (3) Pre-eclampsia in third trimester Onset Date: ~01/12/19 Current Visit: Yes Status: Acute Subjective - Subjective Date of service: 01/13/19 Principal diagnosis: IUP@35wga, PreE with severe features Interval history: Patient comfortabnle after epidural however now with late decelerations with contractions. Patient and family informed, patient now agrees to proceed with c/s. Patient reports: new complaints, movement normal Objective - Vital Signs Vital Signs: Vital Signs - 12hr 01/12/19 01/12/19 01/12/19 21:25 21:42 21:47 Temperature Pulse Rate 86 81 76 Blood Pressure 150/96 O2 Sat by Pulse 99 100 Oximetry 01/12/19 01/12/19 01/12/19 21:52 21:57 22:02 Temperature Pulse Rate 77 78 78 Blood Pressure O2 Sat by Pulse 100 100 100 Oximetry 01/12/19 01/12/19 01/12/19 22:07 22:12 22:17 Temperature Pulse Rate 80 78 75 Blood Pressure O2 Sat by Pulse 100 100 100 Oximetry 01/12/19 01/12/19 01/12/19 22:22 22:25 22:27 Temperature Pulse Rate 76 80 79 Blood Pressure 136/89 O2 Sat by Pulse 99 100 Oximetry 01/12/19 01/12/19 01/12/19 22:32 22:37 22:42 Temperature Pulse Rate 85 87 75 Blood Pressure O2 Sat by Pulse 100 100 100 Oximetry 01/12/19 01/12/19 01/12/19 22:47 22:52 22:57 Temperature Pulse Rate 81 77 76 Blood Pressure O2 Sat by Pulse 100 100 100 Oximetry 01/12/19 01/12/19 01/12/19 23:02 23:07 23:12 Temperature Pulse Rate 81 76 73 Blood Pressure O2 Sat by Pulse 100 100 100 Oximetry 01/12/19 01/12/19 01/12/19 23:17 23:22 23:25 Temperature Pulse Rate 75 88 78 Blood Pressure 150/96 O2 Sat by Pulse 100 100 Oximetry 0701/12/19 01/12/19 23:27 23:32 23:37 Temperature Pulse Rate 81 69 97 H Blood Pressure O2 Sat by Pulse 100 100 100 Oximetry 01/12/19 01/12/19 01/12/19 23:42 23:45 23:46 Temperature Pulse Rate 79 78 72 Blood Pressure 178/113 163/105 O2 Sat by Pulse 100 Oximetry 01/12/19 01/12/19 01/12/19 23:47 23:52 23:57 Temperature Pulse Rate 76 76 76 Blood Pressure O2 Sat by Pulse 100 100 100 Oximetry 01/13/19 01/13/19 01/13/19 00:02 00:07 00:12 Temperature Pulse Rate 83 78 72 Blood Pressure O2 Sat by Pulse 100 100 100 Oximetry 01/13/19 01/13/19 01/13/19 00:17 00:22 00:23 Temperature Pulse Rate 72 76 81 Blood Pressure 167/109 O2 Sat by Pulse 100 100 Oximetry 01/13/19 01/13/19 01/13/19 00:27 00:32 00:44 Temperature Pulse Rate 77 76 81 Blood Pressure O2 Sat by Pulse 100 100 100 Oximetry 01/13/19 01/13/19 01/13/19 00:49 00:54 00:55 Temperature Pulse Rate 84 81 81 Blood Pressure 176/119 O2 Sat by Pulse 100 100 Oximetry 01/13/19 01/13/19 01/13/19 01:00 01:05 01:10 Temperature Pulse Rate 88 80 93 H Blood Pressure O2 Sat by Pulse 100 100 100 Oximetry 01/13/19 01/13/19 01/13/19 01:11 01:15 01:20 Temperature Pulse Rate 82 88 83 Blood Pressure 176/119 O2 Sat by Pulse 100 100 Oximetry 01/13/19 01/13/19 01/13/19 01:23 01:25 01:30 Temperature Pulse Rate 89 92 H 103 H Blood Pressure 151/91 O2 Sat by Pulse 100 100 Oximetry 01/13/19 01/13/19 01/13/19 01:35 01:40 01:44 Temperature Pulse Rate 95 H 94 H 94 H Blood Pressure O2 Sat by Pulse 100 100 93 Oximetry 01/13/19 01/13/19 01/13/19 01:45 01:48 01:50 Temperature Pulse Rate 94 H 94 H 100 H Blood Pressure 143/96 O2 Sat by Pulse 99 99 Oximetry 01/13/19 01/13/19 01/13/19 01:53 01:55 01:58 Temperature Pulse Rate 99 H 102 H 100 H Blood Pressure 144/94 150/95 O2 Sat by Pulse 98 Oximetry 01/13/19 01/13/19 01/13/19 02:00 02:03 02:05 Temperature Pulse Rate 103 H 104 H 104 H Blood Pressure 148/108 O2 Sat by Pulse 98 99 Oximetry 01/13/19 01/13/19 01/13/19 02:09 02:10 02:13 Temperature Pulse Rate 104 H 102 H 99 H Blood Pressure 140/88 144/93 O2 Sat by Pulse 99 Oximetry 01/13/19 01/13/19 01/13/19 02:15 02:18 02:20 Temperature Pulse Rate 100 H 100 H 104 H Blood Pressure 153/96 O2 Sat by Pulse 99 99 Oximetry 01/13/19 01/13/19 01/13/19 02:23 02:25 02:28 Temperature Pulse Rate 100 H 107 H 104 H Blood Pressure 147/96 152/100 O2 Sat by Pulse 99 Oximetry 01/13/19 01/13/19 01/13/19 02:30 02:33 02:35 Temperature Pulse Rate 105 H 104 H 107 H Blood Pressure 157/97 O2 Sat by Pulse 99 99 Oximetry 01/13/19 01/13/19 01/13/19 02:38 02:40 02:43 Temperature Pulse Rate 96 H 103 H 101 H Blood Pressure 155/95 157/101 O2 Sat by Pulse 99 Oximetry 01/13/19 01/13/19 01/13/19 02:45 02:48 02:50 Temperature Pulse Rate 99 H 98 H 95 H Blood Pressure 150/92 O2 Sat by Pulse 99 99 Oximetry 01/13/19 01/13/19 01/13/19 02:53 02:55 02:58 Temperature Pulse Rate 95 H 100 H 99 H Blood Pressure 157/95 155/91 O2 Sat by Pulse 100 Oximetry 01/13/19 01/13/19 01/13/19 03:00 03:03 03:05 Temperature Pulse Rate 97 H 95 H 103 H Blood Pressure 156/93 O2 Sat by Pulse 100 99 Oximetry 01/13/19 01/13/19 01/13/19 03:08 03:10 03:13 Temperature Pulse Rate 100 H 96 H 97 H Blood Pressure 151/91 150/91 O2 Sat by Pulse 99 Oximetry 01/13/19 01/13/19 01/13/19 03:15 03:18 03:20 Temperature Pulse Rate 95 H 97 H 93 H Blood Pressure 148/87 O2 Sat by Pulse 100 99 Oximetry 01/13/19 01/13/19 01/13/19 03:23 03:25 03:28 Temperature Pulse Rate 98 H 102 H 93 H Blood Pressure 148/90 153/91 O2 Sat by Pulse 99 Oximetry 01/13/19 01/13/19 01/13/19 03:30 03:33 03:35 Temperature Pulse Rate 91 H 98 H 102 H Blood Pressure 150/89 O2 Sat by Pulse 99 99 Oximetry 01/13/19 01/13/19 01/13/19 03:40 03:45 03:50 Temperature Pulse Rate 101 H 102 H 101 H Blood Pressure O2 Sat by Pulse 99 100 100 Oximetry 01/13/19 01/13/19 01/13/19 03:55 04:00 04:05 Temperature Pulse Rate 97 H 97 H 98 H Blood Pressure O2 Sat by Pulse 99 99 99 Oximetry 01/13/19 01/13/19 01/13/19 04:08 04:10 04:15 Temperature Pulse Rate 100 H 100 H 99 H Blood Pressure 156/95 O2 Sat by Pulse 99 99 Oximetry 01/13/19 01/13/19 01/13/19 04:20 04:25 04:30 Temperature Pulse Rate 101 H 101 H 93 H Blood Pressure O2 Sat by Pulse 99 100 99 Oximetry 01/13/19 01/13/19 01/13/19 04:35 04:38 04:40 Temperature Pulse Rate 98 H 104 H 98 H Blood Pressure 151/91 O2 Sat by Pulse 99 99 Oximetry 01/13/19 01/13/19 01/13/19 04:45 04:50 04:55 Temperature Pulse Rate 104 H 98 H 97 H Blood Pressure O2 Sat by Pulse 100 99 99 Oximetry 01/13/19 01/13/19 01/13/19 05:00 05:05 05:08 Temperature Pulse Rate 92 H 88 88 Blood Pressure 161/106 O2 Sat by Pulse 99 98 Oximetry 01/13/19 01/13/19 01/13/19 05:10 05:15 05:18 Temperature Pulse Rate 90 92 H 93 H Blood Pressure 150/89 O2 Sat by Pulse 100 99 Oximetry 01/13/19 01/13/19 01/13/19 05:20 05:25 05:30 Temperature Pulse Rate 89 99 H 88 Blood Pressure O2 Sat by Pulse 100 99 100 Oximetry 01/13/19 01/13/19 01/13/19 05:35 05:38 05:39 Temperature Pulse Rate 93 H 97 H 102 H Blood Pressure 173/115 172/111 O2 Sat by Pulse 99 Oximetry 01/13/19 01/13/19 01/13/19 05:40 05:41 05:46 Temperature Pulse Rate 104 H 101 H 104 H Blood Pressure 156/99 O2 Sat by Pulse 100 99 Oximetry 01/13/19 01/13/19 01/13/19 05:51 05:56 06:01 Temperature Pulse Rate 116 H 106 H 101 H Blood Pressure O2 Sat by Pulse 99 100 100 Oximetry 01/13/19 01/13/19 01/13/19 06:06 06:08 06:11 Temperature Pulse Rate 100 H 100 H 99 H Blood Pressure 171/103 O2 Sat by Pulse 100 100 Oximetry 01/13/19 01/13/19 01/13/19 06:16 06:21 06:26 Temperature Pulse Rate 103 H 101 H 104 H Blood Pressure O2 Sat by Pulse 99 100 100 Oximetry 01/13/19 01/13/19 01/13/19 06:31 06:36 06:38 Temperature Pulse Rate 100 H 97 H 100 H Blood Pressure 172/113 O2 Sat by Pulse 99 99 Oximetry 01/13/19 01/13/19 01/13/19 06:41 06:44 06:46 Temperature Pulse Rate 100 H 100 H 98 H Blood Pressure 170/107 O2 Sat by Pulse 99 99 Oximetry 01/13/19 01/13/19 01/13/19 06:51 06:56 07:01 Temperature Pulse Rate 96 H 103 H 107 H Blood Pressure O2 Sat by Pulse 100 99 100 Oximetry 01/13/19 01/13/19 01/13/19 07:06 07:09 07:11 Temperature Pulse Rate 115 H 117 H 117 H Blood Pressure 181/100 O2 Sat by Pulse 100 100 Oximetry 01/13/19 01/13/19 01/13/19 07:13 07:16 07:20 Temperature Pulse Rate 121 H 110 H 125 H Blood Pressure 181/100 179/91 O2 Sat by Pulse 100 Oximetry 01/13/19 01/13/19 01/13/19 07:21 07:25 07:26 Temperature Pulse Rate 141 H 131 H 133 H Blood Pressure 151/86 149/89 O2 Sat by Pulse 100 100 Oximetry 01/13/19 01/13/19 01/13/19 07:31 07:36 07:37 Temperature Pulse Rate 132 H 131 H 126 H Blood Pressure 151/90 124/88 O2 Sat by Pulse 100 100 Oximetry 01/13/19 01/13/19 01/13/19 07:38 07:41 07:46 Temperature Pulse Rate 131 H 112 H 93 H Blood Pressure 141/92 159/98 O2 Sat by Pulse 96 99 Oximetry 01/13/19 01/13/19 01/13/19 07:47 07:50 07:51 Temperature Pulse Rate 93 H 96 H 101 H Blood Pressure 108/59 132/79 O2 Sat by Pulse 99 Oximetry 01/13/19 01/13/19 01/13/19 07:56 08:01 08:03 Temperature Pulse Rate 102 H 112 H 105 H Blood Pressure 136/88 185/107 154/102 O2 Sat by Pulse 100 98 Oximetry 01/13/19 01/13/19 01/13/19 08:06 08:11 08:16 Temperature Pulse Rate 109 H 109 H 103 H Blood Pressure 150/91 143/85 O2 Sat by Pulse 98 98 97 Oximetry 01/13/19 01/13/19 01/13/19 08:21 08:22 08:26 Temperature 97.9 F Pulse Rate 105 H 109 H 102 H Blood Pressure 131/94 136/82 O2 Sat by Pulse 97 97 Oximetry 01/13/19 01/13/19 01/13/19 08:29 08:31 08:33 Temperature Pulse Rate 91 H 99 H 95 H Blood Pressure 125/59 116/69 O2 Sat by Pulse 98 Oximetry 01/13/19 01/13/19 01/13/19 08:35 08:36 08:37 Temperature Pulse Rate 94 H 95 H 95 H Blood Pressure 126/81 132/93 O2 Sat by Pulse 100 Oximetry 01/13/19 01/13/19 01/13/19 08:39 08:41 08:43 Temperature Pulse Rate 100 H 102 H 108 H Blood Pressure 135/90 138/89 140/89 O2 Sat by Pulse 100 Oximetry 01/13/19 08:45 Temperature Pulse Rate 104 H Blood Pressure 139/93 O2 Sat by Pulse Oximetry - Labs Labs: Abnormal Labs 01/12/19 01/12/19 01/12/19 10:23 10:23 10:37 RBC 5.34 H Hgb 16.0 H Hct 46.3 H MCHC 35 H Magnesium Lactate Dehydrogenase 267 H Urine WBC (Auto) 7.0 H 01/13/19 05:59 RBC Hgb Hct MCHC Magnesium 4.30 H Lactate Dehydrogenase Urine WBC (Auto) Laboratory Results - last 24 hr 01/12/19 01/12/19 01/12/19 10:23 10:23 10:23 WBC 9.1 RBC 5.34 H Hgb 16.0 H Hct 46.3 H MCV 87 MCH 30 MCHC 35 H RDW 14.3 Plt Count 230 Creatinine 0.8 Estimated GFR > 60 Uric Acid 6.6 Magnesium AST 34 ALT 46 Lactate Dehydrogenase 267 H Urine Color Urine Turbidity Urine pH Ur Specific [place] Urine Protein Urine Glucose (UA) Urine Ketones Urine Blood Urine Nitrite Urine Bilirubin Urine Urobilinogen Ur Leukocyte Esterase Urine WBC (Auto) Urine RBC (Auto) U Epithel Cells (Auto) Urine Bacteria (Auto) Urine Mucus Blood Type Antibody Screen 01/12/19 01/12/19 01/13/19 10:37 12:59 05:59 WBC RBC Hgb Hct MCV MCH MCHC RDW Plt Count Creatinine Estimated GFR Uric Acid Magnesium 4.30 H AST ALT Lactate Dehydrogenase Urine Color Yellow Urine Turbidity Slightly-cloudy Urine pH 6.0 Ur Specific [place] 1.024 Urine Protein >500 Urine Glucose (UA) Neg Urine Ketones Neg Urine Blood Neg Urine Nitrite Neg Urine Bilirubin Neg Urine Urobilinogen < 2.0 Ur Leukocyte Esterase Neg Urine WBC (Auto) 7.0 H Urine RBC (Auto) 2.0 U Epithel Cells (Auto) 5.0 Urine Bacteria (Auto) 2+ Urine Mucus 1+ Blood Type O POSITIVE Antibody Screen Negative
[2019-01-13 08:58] LABS: Hematocrit 45.1 % (30.3-42.9); Hemoglobin 15.6 gm/dl (10.1-14.3); Mean Corpuscular HGB Conc 35 % (30-34); Mean Corpuscular Volume 86 fl (79-97); Platelet Count 260 K/mm3 (140-440); Red Blood Count 5.22 M/mm3 (3.65-5.03); Red Cell Distribution Width 14.1 % (13.2-15.2)
[2019-01-13] MEDS ORDERED: fentaNYL-BUPIV 2 MCG/ML-0.125% 200 MCG/100 ML BAG EPIDURAL SCH (09:00)
[2019-01-13] MEDS ORDERED: NARCAN 2 MG/2 ML IV PRN (09:00)
[2019-01-13] MEDS ORDERED: XYLOCAINE 2%/ EPI 1:200,000 INFILTRATI ONE (09:13)
[2019-01-13] MEDS ORDERED: ANCEF/STERILE WATER 2 GM/20 ML IV ONE (09:20)
[2019-01-13 09:22] LABS: Alanine Aminotransferase 47 units/L (7-56); Uric Acid 6.8 mg/dL (3.5-7.6)
[2019-01-13] MEDS ORDERED: ZOFRAN ONE (09:23)
[2019-01-13] MEDS ORDERED: DILAUDID ONE (09:47)
[2019-01-13] MEDS ORDERED: BENADRYL ONE (09:47)
[2019-01-13] MEDS ORDERED: TORADOL ONE (09:47)
[2019-01-13] MEDS ORDERED: SUBLIMAZE ONE (09:50)
[2019-01-13] MEDS ORDERED: MORPHINE IV PRN ×3 (09:55→10:15)
[2019-01-13] MEDS ORDERED: PHENERGAN PO PRN (09:55)
[2019-01-13] MEDS ORDERED: DILAUDID IV PRN (09:55)
[2019-01-13] MEDS ORDERED: ZOFRAN IV PRN (09:55)
[2019-01-13] MEDS ORDERED: NARCAN 0.4 MG/1 ML IV PRN ×2 (09:55→10:15)
[2019-01-13] MEDS ORDERED: PHENERGAN PR PRN (09:55)
[2019-01-13] MEDS ORDERED: SODIUM CHLORIDE FLUSH SYRINGE 10 ML IV NR (10:00)
[2019-01-13] MEDS ORDERED: TUCKS PAD TP PRN (10:15)
[2019-01-13] MEDS ORDERED: MILK OF MAGNESIA PO PRN (10:15)
[2019-01-13] MEDS ORDERED: MYLICON PO PRN (10:15)
[2019-01-13] MEDS ORDERED: LANSINOH TP PRN (10:15)
[2019-01-13] MEDS ORDERED: TORADOL IV PRN (10:15)
[2019-01-13] MEDS ORDERED: TYLENOL PO PRN (10:27)
--- NOTE | 2019-01-13 10:40 | Post Operative Note ---
Pre-op diagnosis: IUP@35wga, PreE, IUGR, NRFHT Post-op diagnosis: same Anesthesia: epidural Surgeon: ROBERT HOPKINS Estimated blood loss: other (800mL) Pathology: list (placenta, moderate adhered clot, to small, slightlyr calcified placenta) Specimen disposition: to lab Condition: stable Disposition: PACU
--- NOTE | 2019-01-13 10:55 | Post Anesthesia Evaluation ---
- Post Anesthesia Evaluation Patient Participated: Yes Airway Patent: Yes Stable Respiratory Function: Yes Nausea/Vomiting: No Temp > 96.8F: Yes Pain Manageable: Yes Adequeate Hydration: Yes Anesthesia Complications: No Block Receding Appropriately: Yes Patient on Ventilator: No
[2019-01-13] MEDS ORDERED: D5LR 1,000 ML IV SCH (11:00)
--- NOTE | 2019-01-13 12:54 | Operative Report ---
Operative Report Operative Report: Date: 01/13/2019 Preoperative diagnosis: 1. Intrauterine at 35 weeks gestation 2. Nonreassuring heart rate tracing 3. Preeclampsia with severe features 4. Intrauterine growth restriction Postoperative diagnosis: 1. Intrauterine at 35 weeks gestation 2. Nonreassuring heart rate tracing 3. Preeclampsia with severe features 4. Intrauterine growth restriction Procedure: Low uterine transverse incision for delivery Surgeon: Victoria Banks MD Architecture Analyst: Kaylie Santos Anesthesia: Epidural Anesthesiologist: Sina Kahn M.D. Estimated blood loss: 800 mL Urine out: [] mL Findings: Live born male infant. Weight 4 lbs. 1 oz. Apgars 8 at 1 minute and 9 at 5 minutes. Uterus grossly normal, tubes grossly normal, ovaries grossly normal. Procedure: After risk, benefits, complications, consequences and alternatives for this procedure were discussed with patient and consents were reviewed and signed, she was taken to the OR where epidural anesthesia was bolused. She was then placed in the left lateral tilt position, and prepped and draped in the usual sterile fashion. Timeout was performed, and an appropriate level of anesthesia was noted, a Pfannenstiel incision was made and extended to the fascia which was incised and extended in the lateral directions. The overlying fascia was sharply dissected away from the underlying rectus muscles in the superior and inferior directions. The midline was entered bluntly. The vesicouterine fold was incised and with blunt dissection the bladder flap was created. A transverse incision was made in the lower uterine segment and extended in superiolateral direction with finger fractionation. Minimal clear fluid was noted. The was delivered from cephalic position. Mouth and nose were bulb suctioned. Spontaneous cry and excellent tone were noted. Cord was doubly clamped and cut. The infant was given to /resuscitation team present. The placenta was manually extracted. The placenta was noted to have a moderate sized organized clot. The uterus was then exteriorized and cleared of any further products of conception or placental tissue. The incision was reapproximated using 0 Vicryl in a running interlocking stitch. The incision was further reinforced with a 0 Vicryl suture in a running imbricating fashion. Grossly normal uterus, tubes and ovaries were noted. Once hemostasis was noted, the uterus was allowed back into the pelvic cavity. The pelvis was irrigated with warm normal saline. Again hemostasis was noted . Surgicel applied for further hemostasis. Interceed was then placed to prevent adhesions. Then attention was turned to the rectus muscles. The rectus muscles reapproximated using 0 Vicryl in a simple interrupted stitch x 3. Once hemostasis was noted, the fascia was reapproximated using 0 Vicryl running stitch fashion. Once hemostasis was noted skin incision was reapproximated using 4-0 Vicryl on a Alfredo needle in a subcuticular manner. Counts were correct 3. Patient tolerated procedure well state recovery room in stable condition.
[2019-01-13] MEDS: DILAUDID IV PRN ×2 (13:17→17:08)
[2019-01-13] MEDS: PROCARDIA XL PO SCH (13:47)
[2019-01-13] MEDS: ANCEF/NS 1 GM/50 ML 1 GM/50 ML BAG IV SCH (16:17)
--- NOTE | 2019-01-13 17:55 | Event Note ---
Date: 01/13/19 (6hr post section) Pt in very good spirits Mag level 5 @ noon 1800 just drawn BP 150-130/90-80 Pt states no LEON, visual disturbance, chest pain. Dressing D&I Continue pathway Will keep APU X 24hr for MGSO4
[2019-01-14] MEDS: PERCOCET 5/325 PO PRN ×4 (00:29→22:17)
[2019-01-14 01:27] LABS: Hematocrit 39.2 % (30.3-42.9); Hemoglobin 13.8 gm/dl (10.1-14.3)
[2019-01-14] MEDS: MAGNESIUM SULFATE 40GM/1000ML 40 GM/1,000 ML BAG IV SCH (02:21)
[2019-01-14] MEDS: ANCEF/NS 1 GM/50 ML 1 GM/50 ML BAG IV SCH (04:43)
[2019-01-14] MEDS ORDERED: M-M-R II VACCINE SUB-Q ONE (06:00)
--- NOTE | 2019-01-14 07:45 | Progress Note ---
Assessment and Plan patient resting w/o complaints. denies LEON, visual changes or epigastric pain. + Flatus. dressing dry and intact. output adequate. postop H&H 13.8/39.2, most recent mag level 5.6. b/p remains elevated 150-160's/100's. Mag sulfate d/t come down this morning @ 2409. Dr. Gutierrez consulted, will start labetalol PO. Continue postop pathway. - Patient Problems (1) delivery delivered Current Visit: Yes Status: Acute (2) Pre-eclampsia in third trimester Onset Date: ~01/12/19 Current Visit: Yes Status: Acute Subjective - Subjective Date of service: 01/14/19 Principal diagnosis: postop day #1, pre-e Patient reports: appetite normal, pain well controlled, flatus, no nauseated [place]: in NICU Objective - Vital Signs Latest vital signs: Vital Signs Temp Pulse Resp BP BP Pulse Ox 01/14/19 07:34 87 99 01/14/19 07:30 88 99 01/14/19 07:24 89 99 01/14/19 07:20 86 98 01/14/19 07:15 91 H 98 01/14/19 07:09 94 H 98 01/14/19 07:05 87 98 01/14/19 07:01 90 168/107 01/14/19 06:59 89 98 01/14/19 06:54 85 98 01/14/19 06:49 89 98 01/14/19 06:45 89 98 01/14/19 06:40 81 98 01/14/19 06:34 89 98 01/14/19 06:29 85 98 01/14/19 06:24 87 98 01/14/19 06:19 88 99 01/14/19 06:14 87 98 01/14/19 06:09 87 98 01/14/19 06:04 84 98 01/14/19 06:01 86 164/105 01/14/19 05:59 91 H 98 01/14/19 05:54 86 98 01/14/19 05:49 86 97 01/14/19 05:44 87 98 01/14/19 05:40 87 98 01/14/19 05:34 87 98 01/14/19 05:29 83 97 01/14/19 05:24 83 98 01/14/19 05:19 85 98 01/14/19 05:14 91 H 98 01/14/19 05:09 82 98 01/14/19 05:04 82 98 01/14/19 05:01 86 158/101 01/14/19 04:59 84 99 01/14/19 04:54 83 98 01/14/19 04:49 86 97 01/14/19 04:44 88 98 01/14/19 04:39 82 98 01/14/19 04:34 93 H 98 01/14/19 04:32 79 93 01/14/19 04:29 74 96 01/14/19 04:24 78 95 01/14/19 04:19 75 97 01/14/19 04:14 78 96 01/14/19 04:09 79 97 01/14/19 04:04 81 95 01/14/19 04:01 75 133/87 01/14/19 03:59 76 96 01/14/19 03:54 75 96 01/14/19 03:49 76 96 01/14/19 03:44 77 96 01/14/19 03:39 77 97 01/14/19 03:34 77 96 01/14/19 03:29 76 96 01/14/19 03:24 77 95 01/14/19 03:19 75 96 01/14/19 03:14 78 94 01/14/19 03:09 78 96 01/14/19 03:04 77 95 01/14/19 03:01 95 H 144/80 94 01/14/19 02:59 78 96 01/14/19 02:54 79 96 01/14/19 02:49 82 95 01/14/19 02:44 77 95 01/14/19 02:41 81 94 01/14/19 02:39 80 95 01/14/19 02:36 81 94 01/14/19 02:34 81 96 01/14/19 02:29 86 96 01/14/19 02:24 86 97 01/14/19 02:19 87 97 01/14/19 02:14 83 95 01/14/19 02:11 82 94 01/14/19 02:09 84 95 01/14/19 02:04 93 H 98 01/14/19 02:03 91 H 94 01/14/19 02:01 87 145/92 01/14/19 01:59 94 H 98 01/14/19 01:54 83 97 01/14/19 01:49 91 H 96 01/14/19 01:44 102 H 96 01/14/19 01:39 100 H 97 01/14/19 01:34 83 97 01/14/19 01:29 84 96 01/14/19 01:24 95 H 95 01/14/19 01:19 87 97 01/14/19 01:14 93 H 97 01/14/19 01:09 91 H 97 01/14/19 01:04 86 98 01/14/19 01:01 90 158/98 01/14/19 00:59 94 H 99 01/14/19 00:54 93 H 99 01/14/19 00:49 98 H 98 01/14/19 00:44 91 H 98 01/14/19 00:39 101 H 98 01/14/19 00:34 93 H 98 01/14/19 00:29 92 H 20 98 01/14/19 00:24 87 97 01/14/19 00:19 91 H 98 01/14/19 00:14 90 98 01/14/19 00:09 89 97 01/14/19 00:04 90 98 01/14/19 00:01 90 164/97 01/13/19 23:59 91 H 98 01/13/19 23:54 93 H 98 01/13/19 23:49 91 H 97 01/13/19 23:44 91 H 98 01/13/19 23:39 92 H 98 01/13/19 23:34 102 H 98 01/13/19 23:29 96 H 98 01/13/19 23:24 96 H 98 01/13/19 23:19 103 H 97 01/13/19 23:14 82 96 01/13/19 23:09 83 97 01/13/19 23:04 86 96 01/13/19 23:01 94 H 154/97 01/13/19 22:59 86 96 01/13/19 22:54 91 H 97 01/13/19 22:49 90 98 01/13/19 22:44 91 H 97 01/13/19 22:39 88 98 01/13/19 22:34 90 98 01/13/19 22:29 93 H 98 01/13/19 22:24 89 98 01/13/19 22:19 89 98 01/13/19 22:14 91 H 98 01/13/19 22:09 94 H 98 01/13/19 22:04 95 H 97 01/13/19 22:01 96 H 167/98 01/13/19 21:59 93 H 98 01/13/19 21:54 93 H 97 01/13/19 21:49 86 98 01/13/19 21:44 88 97 01/13/19 21:39 118 H 98 01/13/19 21:34 86 95 01/13/19 21:32 88 94 01/13/19 21:29 88 96 01/13/19 21:24 87 97 01/13/19 21:22 84 93 01/13/19 21:19 85 95 01/13/19 21:17 85 94 01/13/19 21:14 85 96 01/13/19 21:12 87 94 01/13/19 21:09 87 96 01/13/19 21:05 88 94 01/13/19 21:04 88 95 01/13/19 21:01 103 H 149/92 01/13/19 20:59 89 95 01/13/19 20:54 89 95 01/13/19 20:49 93 H 96 01/13/19 20:44 94 H 97 01/13/19 20:39 91 H 98 01/13/19 20:34 95 H 98 01/13/19 20:29 92 H 98 01/13/19 20:24 90 97 01/13/19 20:19 92 H 99 01/13/19 20:14 90 97 01/13/19 20:09 98 H 98 01/13/19 20:04 95 H 93 01/13/19 20:00 102 H 94 01/13/19 19:59 88 96 01/13/19 19:55 89 94 01/13/19 19:54 93 H 95 01/13/19 19:49 89 95 01/13/19 19:44 90 97 01/13/19 19:39 89 97 01/13/19 19:38 93 H 154/92 01/13/19 19:34 93 H 97 01/13/19 19:29 95 H 96 01/13/19 19:24 94 H 96 01/13/19 19:19 91 H 95 01/13/19 19:14 93 H 97 01/13/19 19:09 93 H 97 01/13/19 19:08 90 147/92 01/13/19 19:04 95 H 98 01/13/19 18:59 98 H 97 01/13/19 18:54 99 H 97 01/13/19 18:49 100 H 97 01/13/19 18:44 94 H 96 01/13/19 18:41 93 H 94 01/13/19 18:39 90 95 01/13/19 18:38 97 H 137/88 01/13/19 18:36 99 H 94 01/13/19 18:34 95 H 96 01/13/19 18:29 94 H 95 01/13/19 18:24 92 H 96 01/13/19 18:19 100 H 97 01/13/19 18:14 98 H 98 01/13/19 18:12 100 H 147/95 01/13/19 18:09 96 H 98 01/13/19 18:08 94 H 153/97 01/13/19 18:04 97 H 98 01/13/19 17:59 97 H 98 01/13/19 17:55 98 H 93 01/13/19 17:54 95 H 95 01/13/19 17:49 101 H 98 01/13/19 17:48 90 94 01/13/19 17:44 93 H 95 01/13/19 17:43 93 H 94 01/13/19 17:39 100 H 98 01/13/19 17:38 92 H 137/89 01/13/19 17:34 95 H 97 01/13/19 17:29 98 H 98 01/13/19 17:24 102 H 98 01/13/19 17:19 104 H 96 01/13/19 17:14 96 H 98 01/13/19 17:09 92 H 98 01/13/19 17:08 90 154/91 01/13/19 17:04 96 H 98 01/13/19 16:59 98 H 99 01/13/19 16:54 96 H 99 01/13/19 16:49 97 H 98 01/13/19 16:44 95 H 99 01/13/19 16:39 97 H 98 01/13/19 16:38 95 H 153/93 01/13/19 16:34 105 H 99 01/13/19 16:29 98 H 98 01/13/19 16:24 95 H 98 01/13/19 16:19 96 H 97 01/13/19 16:14 99 H 97 01/13/19 16:09 98 H 97 01/13/19 16:08 98.6 F 97 H 18 140/90 140/90 01/13/19 16:04 105 H 97 01/13/19 15:59 99 H 95 01/13/19 15:54 100 H 97 01/13/19 15:49 107 H 94 01/13/19 15:46 93 H 93 01/13/19 15:44 98 H 93 01/13/19 15:41 107 H 93 01/13/19 15:39 96 H 95 01/13/19 15:38 101 H 135/84 01/13/19 15:36 97 H 92 01/13/19 15:34 97 H 96 01/13/19 15:30 101 H 94 01/13/19 15:29 100 H 97 01/13/19 15:24 96 H 97 01/13/19 15:19 105 H 97 01/13/19 15:18 103 H 94 01/13/19 15:14 97 H 96 01/13/19 15:09 103 H 97 01/13/19 15:08 111 H 141/86 01/13/19 15:04 103 H 97 01/13/19 14:59 111 H 98 01/13/19 14:54 104 H 96 01/13/19 14:49 105 H 96 01/13/19 14:44 107 H 96 01/13/19 14:39 104 H 97 01/13/19 14:38 105 H 139/89 01/13/19 14:34 107 H 97 01/13/19 14:29 106 H 97 01/13/19 14:24 105 H 98 01/13/19 14:19 108 H 97 01/13/19 14:14 108 H 98 01/13/19 14:09 113 H 98 01/13/19 14:08 110 H 135/86 01/13/19 14:04 111 H 98 01/13/19 13:59 115 H 97 01/13/19 13:54 122 H 96 01/13/19 13:49 118 H 98 01/13/19 13:47 120 H 156/94 01/13/19 13:44 118 H 98 01/13/19 13:39 131 H 150/96 99 01/13/19 13:34 117 H 98 01/13/19 13:29 111 H 98 01/13/19 13:24 114 H 98 01/13/19 13:22 111 H 147/110 01/13/19 13:19 109 H 98 01/13/19 13:16 16 01/13/19 13:14 111 H 98 01/13/19 13:09 111 H 97 01/13/19 13:07 108 H 161/95 01/13/19 13:04 113 H 98 01/13/19 12:59 111 H 173/97 98 01/13/19 12:00 99.7 F H 109 H 18 141/86 97 01/13/19 11:45 112 H 21 135/81 97 01/13/19 11:30 108 H 19 133/82 98 01/13/19 11:15 106 H 19 112/61 98 01/13/19 11:00 116 H 19 118/79 99 01/13/19 10:42 100 H 18 109/64 99 01/13/19 10:37 104 H 18 106/70 98 01/13/19 10:32 104 H 18 87/66 98 01/13/19 10:27 98.4 F 103 H 17 97/56 98 01/13/19 09:11 103 H 131/79 01/13/19 09:09 102 H 141/80 01/13/19 09:07 99 H 137/79 01/13/19 09:06 101 H 99 01/13/19 09:05 100 H 136/78 01/13/19 09:01 104 H 98 01/13/19 08:59 102 H 155/75 01/13/19 08:57 97 H 142/95 01/13/19 08:56 100 H 99 01/13/19 08:55 96 H 142/87 01/13/19 08:53 92 H 129/82 01/13/19 08:52 101 H 124/77 01/13/19 08:51 92 H 100 01/13/19 08:49 100 H 129/77 01/13/19 08:47 107 H 131/84 01/13/19 08:46 108 H 100 01/13/19 08:45 104 H 139/93 01/13/19 08:43 108 H 140/89 01/13/19 08:41 102 H 138/89 100 01/13/19 08:39 100 H 135/90 01/13/19 08:37 95 H 132/93 01/13/19 08:36 95 H 100 01/13/19 08:35 94 H 126/81 01/13/19 08:33 95 H 116/69 01/13/19 08:31 99 H 98 01/13/19 08:29 91 H 125/59 01/13/19 08:26 102 H 136/82 97 01/13/19 08:22 97.9 F 109 H 131/94 01/13/19 08:21 105 H 97 01/13/19 08:16 103 H 97 01/13/19 08:11 109 H 143/85 98 01/13/19 08:06 109 H 150/91 98 01/13/19 08:03 105 H 154/102 01/13/19 08:01 112 H 185/107 98 01/13/19 07:56 102 H 136/88 100 01/13/19 07:51 101 H 99 01/13/19 07:50 96 H 132/79 01/13/19 07:47 93 H 108/59 01/13/19 07:46 93 H 99 01/13/19 07:41 112 H 159/98 96 Intake and Output 01/13/19 01/13/19 01/14/19 15:59 23:59 07:59 Intake Total 1510 494.167 158.75 Output Total 508 396 0992 Balance 1255 -190.833 -1791.25 Intake: IV 1510 494.167 158.75 ANCEF/NS 1 GM/50 ML 1 gm 50 In 50 ml @ 100 mls/hr IV Q8H LORI Rx#:[id number] MAGNESIUM SULFATE 40GM/ 285 444.167 158.75 1000ML 40 gm In 1,000 ml @ 1 GM/HR 25 mls/hr IV DIRECT LORI Rx#:[id number] Output: Urine 318 158 5093 Indwelling Catheter 605 367 7465 Other: Total, Output Amount 35 400 950 Estimated Blood Loss 300 - Exam Breasts: Present: normal Cardiovascular: Present: Regular rate Lungs: Present: Clear to auscultation, Normal air movement Abdomen: Present: normal appearance, soft Vulva: both: normal Uterus: Present: normal, firm Extremities: Present: normal Deep Tendon Reflex Grade: Normal +2 Incision: Present: normal, dry, dressed - Labs Labs: Abnormal lab results 01/13/19 01/13/19 01/13/19 Range/Units 08:46 08:46 12:07 WBC 14.1 H (4.5-11.0) K/mm3 RBC 5.22 H (3.65-5.03) M/mm3 Hgb 15.6 H (10.1-14.3) gm/dl Hct 45.1 H (30.3-42.9) % MCHC 35 H (30-34) % Magnesium 5.10 H (1.7-2.3) mg/dL Lactate Dehydrogenase 295 H (91-180) units/L 01/13/19 01/14/19 01/14/19 Range/Units 18:20 00:54 06:01 WBC (4.5-11.0) K/mm3 RBC (3.65-5.03) M/mm3 Hgb (10.1-14.3) gm/dl Hct (30.3-42.9) % MCHC (30-34) % Magnesium 6.20 H 5.50 H 5.10 H (1.7-2.3) mg/dL Lactate Dehydrogenase (91-180) units/L
[2019-01-14] MEDS: IBUPROFEN PO PRN ×2 (08:52→15:00)
[2019-01-14] MEDS: NORMODYNE PO SCH ×2 (08:53→22:13)
[2019-01-14] MEDS: PROCARDIA XL PO SCH (08:56)
[2019-01-14] MEDS ORDERED: APRESOLINE ONE (09:17)
[2019-01-14] MEDS ORDERED: APRESOLINE IV ONE (09:30)
[2019-01-14] MEDS: PRENATAL VITAMIN PO SCH ×2 (14:59→15:00)
[2019-01-14] MEDS: COLACE PO PRN (15:04)
--- NOTE | 2019-01-14 17:35 | Event Note ---
Date: 01/14/19 Agree with MW exam and note. Labetaolol added to procardia started at time of delivery. Will con't to monitor closely.
[2019-01-15] MEDS: NORMODYNE PO SCH (09:00)
[2019-01-15] MEDS: PROCARDIA XL PO SCH (09:00)
[2019-01-15] MEDS: PRENATAL VITAMIN PO SCH (11:12)
[2019-01-15] MEDS: COLACE PO PRN (11:13)
--- NOTE | 2019-01-15 15:40 | Discharge Summary ---
Providers - Providers Date of Admission: 01/12/19 12:21 Date of discharge: 01/15/19 (Pt desires d/c home today, cleared by Dr. Banks pending BPs remain <150/95, RN aware) Attending physician: JEF ASHLEY 01/13/19 10:15 Consult to Supervisor Graphite [CONS] Routine Reason For Exam: Primary care physician: JEF ASHLEY Hospitalization Reason for admission: IOL PIH Condition: Good Pertinent studies: post delivery H&H 13.8/39.2 Procedures: primary c/s for NRFHTs Hospital course: uncomplicated delivery and course Disposition: DC-01 TO HOME OR SELFCARE Core Measure Documentation - Palliative Care Palliative Care/ Comfort Measures: Not Applicable - Core Measures Any of the following diagnoses?: none Exam - Constitutional Vitals: Temp Pulse Resp BP Pulse Ox 99.6 F 89 20 155/99 97 01/15/19 12:26 01/15/19 12:26 01/15/19 12:26 01/15/19 12:26 01/15/19 12:26 General appearance: Present: no acute distress, well-nourished - EENT Eyes: Present: PERRL ENT: hearing intact, clear oral mucosa - Neck Neck: Present: supple, normal ROM - Respiratory Respiratory effort: normal Respiratory: bilateral: CTA - Cardiovascular Rhythm: regular Heart Sounds: Present: S1 & S2. Absent: rub, click - Extremities Extremities: pulses symmetrical, No edema Peripheral Pulses: within normal limits - Abdominal General gastrointestinal: Present: soft, non-tender, non-distended, normal bowel sounds Female genitourinary: Present: normal - Integumentary Integumentary: Present: clear, warm, dry - Musculoskeletal Musculoskeletal: gait normal, strength equal bilaterally - Psychiatric Psychiatric: appropriate mood/affect, intact judgment & insight - Neurologic Neurologic: CNII-XII intact, moves all extremities - Additional findings Additional findings: Patient resting comfortably in bed, she reports feeling well, denies any complaints or concerns. Fundus is firm, ML, U/1, vaginal bleeding is minimal, patient denies any clots or heavy bleeding. Incision is healing well, well- approximated, no bleeding or drainage noted, no s/s infection. Patient reports pain is well managed by medications. VSSAF. Bps reviewed by Dr. Banks, may D/C home pending BPs remain <150/95, RN is aware. RR of 89 documented in error. Current RR is 18. Pt encouraged to increase water intake, continue use of IS, and frequent ambulation. DWP hygiene/care for incision area. Pt to f/u in office on 01/19. Plan Activity: advance as tolerated Diet: regular Wound: open to air, keep clean and dry Follow up with: JEF ASHLEY MD [Primary Care Provider] - 01/19/19 1:30 am (Please keep scheduled appt for incision and BP check on January 19 at 1:30. Your son's circumcision appointment is also scheduled at this time. Please bring EMLA cream with you to his appointment. If you need to reschedule his appointment, call [phone]. Call with any questions or concerns. ) Prescriptions: Lidocain2.5%/Prilocai2.5% [Emla] 5 gm TP ONCE #1 tube Labetalol [Labetalol 200mg TAB] 200 mg PO BID #60 tablet Ibuprofen [Motrin 800 MG tab] 800 mg PO TID PRN #30 tablet PRN Reason: Pain oxyCODONE /ACETAMINOPHEN [Percocet 5/325 mg] 1 - 2 tab PO Q4HR PRN #20 tablet PRN Reason: Pain NIFEdipine XL [Procardia Xl] 30 mg PO QDAY #30 tablet
[2019-01-15 17:01] VITALS: BP 150/92
[2019-01-21 12:02] LABS: Creatinine Clearance Urine TNR; Creatinine,Urine TNR mg/dL (0.1-20.0); Patient Height,Urine TNR inches; Patient Weight,Urine TNR lbs; Total Volume,Urine TNR ml
== END 2019-01-15 18:05 | disposition home or self-care (01) | DRG 788 ==
LOC: TRG 10:03 → LD 12:21 → OB 01-14 12:03
PROVIDERS: ADMIT Obstetrics & Gynecology; ATTEND Obstetrics & Gynecology
PROC: 10D00Z1 Extraction of Products of Conception, Low, Open Approach (ICD-10-PCS; principal; 2019-01-13)
PROC: 3E0234Z Introduction of Serum, Toxoid and Vaccine into Muscle, Percutaneous Approach (ICD-10-PCS; 2019-01-14)
DX: O11.4 Pre-existing hypertension with pre-eclampsia, complicating childbirth (principal); O76 Abnormality in fetal heart rate and rhythm complicating labor and delivery; O36.5930 Maternal care for other known or suspected poor fetal growth, third trimester, not applicable or unspecified; Z37.0 Single live birth; Z3A.35 35 weeks gestation of pregnancy; Z23 Encounter for immunization
CPT/HCPCS: 36415; 76816; 76819; 81001; 82565; 82570; 82575; 83615; 83735; 84450; 84460; 84550; 85014; 85018; 85027; 86850; 86900; 86901; 88307; G0378; C1765; J0360; J0690; J0702; J1170; J1200; J1885; J2405; J2590; J2765; J3010; J3475; J7120; J7121